=== PATIENT | female | born 1940 | race Caucasian/White ===

== ENCOUNTER 2019-04-20 18:36 | Inpatient (IN) | payer OTHER ==
[~2019-04-20] VITALS: Ht 162.6 cm; Wt 80.7 kg
[2019-04-20 18:36] VITALS: BP 151/85
[~2019-04-20 18:36] MED LIST: CLEOCIN HCL300 MG PO; COZAAR 25 MG TA25 MG PO; MECLIZINE HCL25 M1 PO; NEXIUM40 MG PO; NORCO 5-325 TA1 EACH PO
[2019-04-20 19:53] LABS: ABSOLUTE NEUTROPHILS 6.4 thou/uL (1.4-8.2); BASOPHILS 0.7 % (0.0-2.0); EOSINOPHILS 0.5 % (0.0-3.0); HEMATOCRIT 41.2 % (37.0-47.0); HEMOGLOBIN 13.5 gm/dL (12.0-15.0); LYMPHOCYTES 14.7 % (24.0-44.0); MCH 32.3 pg (26.0-34.0); MCHC 32.9 g/dL (28.0-37.0); MCV 98.2 fL (80.0-100.0); MONOCYTES 5.6 % (1.0-8.0); PLATELET COUNT 315 thou/uL (150-400); POLYS 78.5 % (36.0-66.0); RDW 14.6 % (10.5-14.5); WBC 8.2 thou/uL (4.0-11.0)
[2019-04-20 22:32] VITALS: BP 167/90
[2019-04-20] MEDS ORDERED: XARELTO20 MG PO (22:55)
[2019-04-20 22:56] VITALS: BP 142/85
[2019-04-20 23:48] VITALS: BP 127/79
[2019-04-21] MEDS ORDERED: VITAMIN D10000 UNIT PO (03:17)
[2019-04-21] MEDS ORDERED: VENLAFAXINE HC150 M1 PO (03:17)
[2019-04-21 03:23] VITALS: BP 149/84
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
[2019-04-21 07:18] VITALS: BP 143/68
[2019-04-21 09:53] LABS: HEMATOCRIT 35.2 % (37.0-47.0); MCH 31.9 pg (26.0-34.0); MCHC 32.7 g/dL (28.0-37.0); MCV 97.6 fL (80.0-100.0); RBC 3.61 mil/uL (4.20-5.00); RDW 14.6 % (10.5-14.5); WBC 7.4 thou/uL (4.0-11.0)
[2019-04-21 09:54] LABS: HEMOGLOBIN 11.5 gm/dL (12.0-15.0)
--- NOTE | 2019-04-21 11:32 | NUR ---
dR. SCHMITZ PAGED FOR PT. PT SPOKE TO dr. schmitz. He is okay with pt getting discharge today, starting back on xeralto and see him in the middle of the week. Dr. Wilkerson paged and updated.
[2019-04-21 11:59] VITALS: BP 143/68
--- NOTE | 2019-04-21 12:22 | NUR ---
PT discharge intructoiona dn education given to pt. Pt son here to get pt, pt transported to the car by wheel chair.
[2019-04-22 03:06] LABS: GLYCOHEMOGLOBIN (HGB A1C) 5.5 % (4.8-5.6)
== END 2019-04-21 12:24 | disposition home or self-care (01) | DRG 151 ==
LOC: ER 18:36 → EROBS 22:05 → 3W 23:21
PROVIDERS: Nurse Practitioner Acute Care; Nurse Practitioner Family; ADMIT Hospitalist
DX: R04.0 Epistaxis (principal); I10 Essential (primary) hypertension; R00.0 Tachycardia, unspecified; F32.9 Major depressive disorder, single episode, unspecified; M16.11 Unilateral primary osteoarthritis, right hip; R11.2 Nausea with vomiting, unspecified; Z86.711 Personal history of pulmonary embolism; Z79.01 Long term (current) use of anticoagulants; Z79.891 Long term (current) use of opiate analgesic; Z86.718 Personal history of other venous thrombosis and embolism; Z79.899 Other long term (current) drug therapy
CPT/HCPCS: 10879

== ENCOUNTER 2020-12-30 18:34 | Emergency (ER) | payer OTHER ==
[~2020-12-30] VITALS: Ht 162.6 cm; Wt 81.7 kg
[~2020-12-30 18:34] MED LIST changes: +VENLAFAXINE HC150 M1 PO; +VITAMIN D10000 UNIT PO; +XARELTO20 MG PO
[2020-12-30] MEDS ORDERED: APAP W/CODEINE1 TA2 PO (19:37)
[2020-12-30] MEDS ORDERED: NORCO5 PO (21:48)
[2020-12-30 21:53] VITALS: BP 210/110
== END 2020-12-30 21:53 | disposition home or self-care (01) ==
LOC: ER 18:34
DX: M54.17 Radiculopathy, lumbosacral region (principal); M16.11 Unilateral primary osteoarthritis, right hip; I10 Essential (primary) hypertension; F32.9 Major depressive disorder, single episode, unspecified; Z86.711 Personal history of pulmonary embolism; Z86.718 Personal history of other venous thrombosis and embolism; Z79.891 Long term (current) use of opiate analgesic; Z79.899 Other long term (current) drug therapy